=== PATIENT | female | born 1985 | race African-American/Black ===

== ENCOUNTER 2016-09-06 09:53 | Emergency (ER) | payer OTHER ==
[~2016-09-06] VITALS: Ht 175.3 cm; Wt 95.3 kg
[~2016-09-06 09:53] MED LIST: IBUPROFEN800 MG ORAL
--- NOTE | 2016-09-06 10:11 | Emergency Room Report ---
History of Present Illness General Chief Complaint: Abdominal Pain Source: Patient Present Illness HPI Patient presents with complaints of epigastric pain Vomiting and diarrhea since this morning Patient reports smoking marijuana also had a small amount of alcohol However she does not feel that this would attribute to her symptoms As any fevers denies any back or flank pain Pain is epigastric 6/10 sharp Denies any dysuria frequency denies any trauma, Allergies: Coded Allergies: No Known Allergies (Unverified , 12/20/14) Patient History Past Medical History: see triage record Pertinent Family History: none Last Menstrual Period: unk Reviewed Nursing Documentation: PMH: Agreed, PSxH: Agreed Nursing Documentation-PMH Past Medical History: No History, Except For Hx Hypertension: Yes Review of Systems All Other Systems: negative except mentioned in HPI Physical Exam Vital Signs Date Time Temp Pulse Resp B/P Pulse Ox O2 Delivery O2 Flow Rate FiO2 09/06/16 09:55 97.0 62 18 162/98 96 Room Air Sp02 EP Interpretation: reviewed, normal General Appearance: mild distress - Actively vomiting Head: normocephalic, atraumatic Eyes: bilateral eye EOMI, bilateral eye PERRL ENT: hearing grossly normal, normal pharynx, TMs + canals normal, uvula midline Neck: full range of motion, supple, no meningismus, no bony tend Respiratory: lungs clear, normal breath sounds, no rhonchi, no respiratory distress, no retraction, no accessory muscle use Cardiovascular #1: normal peripheral pulses, regular rate, rhythm, no edema, no gallop, no JVD, no murmur Gastrointestinal: normal bowel sounds, soft, no mass, no organomegaly, non- distended, no guarding, no hernia, no pulsatile mass, no rebound, tenderness - Mild discomfort epigastric area Genitourinary: no CVA tenderness Musculoskeletal: normal inspection Neurologic: oriented x3, responsive, cell biology scientist III-XII nml as tested, motor strength/ tone normal, sensory intact Psychiatric: mood/affect normal Skin: normal color, no rash, warm/dry, palpation normal Lymphatic: normal inspection, no adenopathy Medical Decision Making Diagnostic Impression: Primary Impression: Abdominal pain Additional Impressions: Vomiting Diarrhea ER Course With the patient's history and examination, multiple differentials considered, including but not limited to , ectopic , ovarian torsion, gastritis, cholecystitis, pancreatitis, appendicitis Patient's what blood cell count is minimally elevated Otherwise chemistry And urine sample did not show any infectious pathology Patient continues to significantly better in the ER Given a soft abdomen on reexamination Further investigation with CT imaging has not been performed Patient is advised regarding early signs of appendicitis and will return with any changes Labs Test 09/06/16 10:19 White Blood Count 12.6 K/UL (4.8-10.8) Red Blood Count 4.56 M/UL (4.20-5.40) Hemoglobin 15.1 G/DL (12.0-16.0) Hematocrit 45.7 % (37.0-47.0) Mean Corpuscular Volume 100 FL (80-99) Mean Corpuscular Hemoglobin 33.1 PG (27.0-31.0) Mean Corpuscular Hemoglobin Concent 33.0 G/DL (32.0-36.0) Red Cell Distribution Width 11.0 % (11.6-14.8) Platelet Count 357 K/UL (150-450) Mean Platelet Volume 7.9 FL (6.5-10.1) Neutrophils (%) (Auto) % (45.0-75.0) Lymphocytes (%) (Auto) % (20.0-45.0) Monocytes (%) (Auto) % (1.0-10.0) Eosinophils (%) (Auto) % (0.0-3.0) Basophils (%) (Auto) % (0.0-2.0) Differential Total Cells Counted 100 Neutrophils % (Manual) 83 % (45-75) Lymphocytes % (Manual) 12 % (20-45) Monocytes % (Manual) 5 % (1-10) Eosinophils % (Manual) 0 % (0-3) Basophils % (Manual) 0 % (0-2) Band Neutrophils 0 % (0-8) Platelet Estimate Adequate Platelet Morphology Normal Red Blood Cell Morphology Normal Hypochromasia Macrocytosis 1+ Urine Color Yellow Urine Appearance Clear Urine pH 8 (4.5-8.0) Urine Specific [place] 1.010 (1.005-1.035) Urine Protein 2+ (NEGATIVE) Urine Glucose (UA) Negative (NEGATIVE) Urine Ketones 4+ (NEGATIVE) Urine Occult Blood 4+ (NEGATIVE) Urine Nitrite Negative (NEGATIVE) Urine Bilirubin Negative (NEGATIVE) Urine Urobilinogen Normal MG/DL (0.0-1.0) Urine Leukocyte Esterase 1+ (NEGATIVE) Urine RBC 5-10 /HPF (0 - 2) Urine WBC 2-4 /HPF (0 - 2) Urine Squamous Epithelial Cells Few /LPF (NONE/OCC) Urine Bacteria Few /HPF (NONE) Urine HCG, Qualitative Negative Sodium Level 142 mEQ/L (135-145) Potassium Level 3.5 mEQ/L (3.4-4.9) Chloride Level 98 mEQ/L (98-107) Carbon Dioxide Level 21 mEQ/L (20-30) Anion Gap 23 (5-15) Blood Urea Nitrogen 14 mg/dL (7-23) Creatinine 0.8 mg/dL (0.5-0.9) Estimat Glomerular Filtration Rate > 60 mL/min (>60) Glucose Level 114 mg/dL (74-106) Calcium Level 9.5 mg/dL (8.6-10.2) Total Bilirubin 0.5 mg/dL (0.0-1.2) Aspartate Amino Transf (AST/SGOT) 21 U/L (5-40) Alanine Aminotransferase (ALT/SGPT) 20 U/L (3-33) Alkaline Phosphatase 65 U/L (35-104) Total Protein 7.6 g/dL (6.6-8.7) Albumin 4.4 g/dL (3.5-5.2) Globulin 3.2 g/dL Albumin/Globulin Ratio 1.3 (1.0-2.7) Lipase 18 U/L (< 60) Urine Opiates Screen Negative (NEGATIVE) Urine Barbiturates Screen Negative (NEGATIVE) Phencyclidine (PCP) Screen Negative (NEGATIVE) Urine Amphetamines Screen Negative (NEGATIVE) Urine Benzodiazepines Screen Negative (NEGATIVE) Urine Cocaine Screen Negative (NEGATIVE) Urine Marijuana (THC) Screen Positive (NEGATIVE) Last Vital Signs Date Time Temp Pulse Resp B/P Pulse Ox O2 Delivery O2 Flow Rate FiO2 09/06/16 09:55 97.0 62 18 162/98 96 Room Air Status: improved Disposition: HOME, SELF-CARE Condition: Improved Scripts Ondansetron Odt* (ZOFRAN ODT*) 4 Mg Tab.rapdis 4 MG ORAL Q6H Y for Nausea & Vomiting, #20 TAB 0 Refills Prov: IVANNA CERVANTES D.O. 09/06/16 Famotidine (PEPCID) 40 Mg Tablet 40 MG PO DAILY, #7 TAB 0 Refills Prov: IVANNA CERVANTES D.O. 09/06/16 Additional Instructions: Patient is provided with the discharge instructions notified to follow up with primary doctor in the next 2-3 days otherwise return to the er with any worsening symptoms. Please note that this report is being documented using [employer] technology. This can lead to erroneous entry secondary to incorrect interpretation by the dictating instrument. IVANNA CERVANTES D.O. September 06, 2016 10:11
[2016-09-06] MEDS ORDERED: Morphine Sulfate 4mg/ml Inj IVP ONE (10:15)
[2016-09-06] MEDS ORDERED: LORazepam Inj 2mg/ml 1ml IV ONE (10:15)
[2016-09-06 10:29] VITALS: BP 148/93
[2016-09-06 10:40] LABS: MEAN CORPUSCULAR HEMOGLOBIN 33.1 PG (27.0-31.0); MEAN CORPUSCULAR VOLUME 100 FL (80-99); MEAN PLATELET VOLUME 7.9 FL (6.5-10.1); PLATELET COUNT 357 K/UL (150-450); RED BLOOD COUNT 4.56 M/UL (4.20-5.40); WHITE BLOOD COUNT 12.6 K/UL (4.8-10.8)
[2016-09-06 10:43] LABS: APPEARANCE,URINE CLEAR; KETONES,URINE 4+ (NEGATIVE); LEUKOCYTE ESTERASE ,URINE 1+ (NEGATIVE); NITRITE,URINE NEGATIVE (NEGATIVE); PH,URINE 8 (4.5-8.0); PROTEIN,URINE 2+ (NEGATIVE); UROBILINOGEN,URINE NORMAL MG/DL (0.0-1.0)
[2016-09-06 10:57] LABS: ALANINE AMINOTRANSFERASE 20 U/L (3-33); ALBUMIN/GLOBULIN RATIO 1.3 (1.0-2.7); ANION GAP 23 (5-15); ASPARTATE AMINO TRANSFERASE 21 U/L (5-40); CALCIUM 9.5 mg/dL (8.6-10.2); CARBON DIOXIDE 21 mEQ/L (20-30); CHLORIDE 98 mEQ/L (98-107); CREATININE 0.8 mg/dL (0.5-0.9); GLOMERULAR FILTRATION RATE > 60 mL/min (>60); HEMOLYSIS 2; LIPASE 18 U/L (< 60); POTASSIUM 3.5 mEQ/L (3.4-4.9); SODIUM 142 mEQ/L (135-145); TOTAL PROTEIN 7.6 g/dL (6.6-8.7)
[2016-09-06 11:00] LABS: BACTERIA,URINE FEW /HPF; SQUAMOUS EPITHELIAL CELL,UR FEW /LPF (NONE/OCC)
[2016-09-06 11:24] LABS: LYMPHOCYTES % (MANUAL) 12 % (20-45); MACROCYTES 1+; NEUTROPHILS % (MANUAL) 83 % (45-75); PLATELET MORPHOLOGY NORMAL; TOTAL CELLS COUNTED 100
[2016-09-06 11:38] VITALS: BP 159/74
[2016-09-06 12:15] LABS: BAND NEUTROPHILS % (MANUAL) 0 % (0-8); BASOPHILS % (MANUAL) 0 % (0-2); EOSINOPHILS % (MANUAL) 0 % (0-3); PLATELET ESTIMATE ADEQUATE
[2016-09-06] MEDS ORDERED: Dicyclomine HCl 10mg/5ml oral soln ORAL ONE (12:45)
[2016-09-06] MEDS ORDERED: Mylanta II UD 30ml ORAL ONE (12:45)
[2016-09-06] MEDS ORDERED: Lidocaine 2% Visc 15ml soln ORAL ONE (12:45)
[2016-09-06] MEDS ORDERED: ZOFRAN ODT4 MG ORAL (12:58)
[2016-09-06] MEDS ORDERED: PEPCID40 MG PO (12:58)
[2016-09-06 13:08] VITALS: BP 139/76
[2016-09-06 13:11] VITALS: BP 139/76
== END 2016-09-06 13:11 | disposition home or self-care (01) ==
LOC: EMR 10:30
DX: R10.9 Unspecified abdominal pain (principal); R11.10 Vomiting, unspecified; R19.7 Diarrhea, unspecified; I10 Essential (primary) hypertension; F12.10 Cannabis abuse, uncomplicated
CPT/HCPCS: 36415; 80053; 80300; 81003; 81025; 83690; 85007; 85025; 96360; 96374; 96375; 99284; J2270; J2405

== ENCOUNTER 2016-11-11 10:26 | Emergency (ER) | payer OTHER ==
[~2016-11-11] VITALS: Ht 175.3 cm; Wt 90.7 kg
[~2016-11-11 10:26] MED LIST changes: +PEPCID40 MG PO; +ZOFRAN ODT4 MG ORAL
[2016-11-11] MEDS ORDERED: ATENOLOL25 MG ORAL (10:41)
[2016-11-11] MEDS ORDERED: Famotidine 20 MG/ 2ML VIAL IVP ONE (11:00)
[2016-11-11] MEDS ORDERED: Morphine Sulfate 4mg/ml Inj IVP ONE ×2 (11:00→13:15)
[2016-11-11 11:21] LABS: APPEARANCE,URINE CLEAR; KETONES,URINE 4+ (NEGATIVE); LEUKOCYTE ESTERASE ,URINE 1+ (NEGATIVE); NITRITE,URINE NEGATIVE (NEGATIVE); PH,URINE 7 (4.5-8.0); PROTEIN,URINE 1+ (NEGATIVE); UROBILINOGEN,URINE NORMAL MG/DL (0.0-1.0)
[2016-11-11 11:22] LABS: MEAN CORPUSCULAR HEMOGLOBIN 35.2 PG (27.0-31.0); MEAN CORPUSCULAR HGB CONC 34.2 G/DL (32.0-36.0); MEAN CORPUSCULAR VOLUME 103 FL (80-99); MEAN PLATELET VOLUME 7.7 FL (6.5-10.1); PLATELET COUNT 298 K/UL (150-450); RED BLOOD COUNT 4.16 M/UL (4.20-5.40); RED CELL DISTRIBUTION WIDTH 11.2 % (11.6-14.8); WHITE BLOOD COUNT 12.2 K/UL (4.8-10.8)
[2016-11-11 11:34] LABS: BACTERIA,URINE FEW /HPF; SQUAMOUS EPITHELIAL CELL,UR MODERATE /LPF (NONE/OCC)
[2016-11-11 11:38] LABS: ALANINE AMINOTRANSFERASE 19 U/L (3-33); ALBUMIN/GLOBULIN RATIO 1.5 (1.0-2.7); ANION GAP 20 (5-15); ASPARTATE AMINO TRANSFERASE 20 U/L (5-40); CALCIUM 9.3 mg/dL (8.6-10.2); CARBON DIOXIDE 19 mEQ/L (20-30); CHLORIDE 100 mEQ/L (98-107); CREATININE 0.8 mg/dL (0.5-0.9); GLOMERULAR FILTRATION RATE > 60 mL/min (>60); HEMOLYSIS 14; LIPASE 11 U/L (< 60); POTASSIUM 3.7 mEQ/L (3.4-4.9); SODIUM 139 mEQ/L (135-145); TOTAL PROTEIN 7.5 g/dL (6.6-8.7)
[2016-11-11 11:53] LABS: BAND NEUTROPHILS % (MANUAL) 0 % (0-8); BASOPHILS % (MANUAL) 0 % (0-2); EOSINOPHILS % (MANUAL) 0 % (0-3); LYMPHOCYTES % (MANUAL) 7 % (20-45); NEUTROPHILS % (MANUAL) 88 % (45-75); PLATELET ESTIMATE ADEQUATE; TOTAL CELLS COUNTED 100
[2016-11-11 11:54] LABS: ANISOCYTOSIS 1+; MACROCYTES 1+; PLATELET MORPHOLOGY NORMAL
[2016-11-11] MEDS ORDERED: Lidocaine 2% Visc 15ml soln ORAL ONE (12:15)
[2016-11-11] MEDS ORDERED: Mylanta II UD 30ml ORAL ONE (12:15)
[2016-11-11] MEDS ORDERED: DiphenhydrAMINE 50mg/ml Inj IVP ONE (13:15)
[2016-11-11] MEDS ORDERED: Metoclopramide 10mg/2ml Inj IVP ONE (13:15)
--- NOTE | 2016-11-11 13:59 | Emergency Room Report ---
History of Present Illness General Chief Complaint: Abdominal Pain Source: Patient, Family Member Present Illness HPI Patient drank heavily last night and now presents vomiting everything and epigastric pain. Denies vomit blood. Pain 10/10, epigastric, not radiating, burning, constant. Has had before with inflammation in stomach. No meds taken. No dysuria, diarrhea, melena, URi sy, cough, chest pain. No SI or HI. No rashes. Allergies: Coded Allergies: No Known Allergies (Unverified , 12/20/14) Patient History Past Medical History: see triage record Social History: Reports: alcohol use Social History Narrative with Mom Last Menstrual Period: 10/12/16 Now: No Reviewed Nursing Documentation: PMH: Agreed, PSxH: Agreed Nursing Documentation-PMH Hx Hypertension: Yes Review of Systems All Other Systems: negative except mentioned in HPI Physical Exam Vital Signs Date Time Temp Pulse Resp B/P Pulse Ox O2 Delivery O2 Flow Rate FiO2 11/11/16 10:38 97.2 69 20 163/71 100 Room Air Sp02 EP Interpretation: reviewed, normal General Appearance: well appearing, GCS 15, mild distress Head: normocephalic Eyes: bilateral eye PERRL, bilateral eye normal inspection ENT: moist mucus membranes Neck: supple Respiratory: lungs clear, normal breath sounds Cardiovascular #1: regular rate, rhythm Cardiovascular #2: 2+ radial (R) Gastrointestinal: normal inspection, normal bowel sounds, no mass, non- distended, no rebound, tenderness - epigastric Musculoskeletal: back normal, gait/station normal, normal range of motion Neurologic: alert, oriented x3, grossly normal Psychiatric: anxious Skin: normal inspection, warm/dry Medical Decision Making Diagnostic Impression: Primary Impression: Abdominal pain Qualified Codes: R10.13 - Epigastric pain Additional Impression: Alcohol abuse ER Course Patient with epigastric pain and vomiting after EtOH. Ddx; gastritis, pancreatitis, PUD, GERD, gallbladder pain amongst others. Evaluation with labs. Tretment with IV hydration, zofran and pepcid. Will also give analgesics. Labs unremarkable. WBC slightly elevated. Still with pain. Attempt GI cocktail. Vomited. Repeat analgesia with improvement. Abd soft. Patient stable for outpatient observation and treatment Laboratory Tests Test 11/11/16 11:00 White Blood Count 12.2 K/UL (4.8-10.8) H Red Blood Count 4.16 M/UL (4.20-5.40) L Hemoglobin 14.6 G/DL (12.0-16.0) Hematocrit 42.7 % (37.0-47.0) Mean Corpuscular Volume 103 FL (80-99) H Mean Corpuscular Hemoglobin 35.2 PG (27.0-31.0) H Mean Corpuscular Hemoglobin Concent 34.2 G/DL (32.0-36.0) Red Cell Distribution Width 11.2 % (11.6-14.8) L Platelet Count 298 K/UL (150-450) Mean Platelet Volume 7.7 FL (6.5-10.1) Neutrophils (%) (Auto) % (45.0-75.0) Lymphocytes (%) (Auto) % (20.0-45.0) Monocytes (%) (Auto) % (1.0-10.0) Eosinophils (%) (Auto) % (0.0-3.0) Basophils (%) (Auto) % (0.0-2.0) Differential Total Cells Counted 100 Neutrophils % (Manual) 88 % (45-75) H Lymphocytes % (Manual) 7 % (20-45) L Monocytes % (Manual) 5 % (1-10) Eosinophils % (Manual) 0 % (0-3) Basophils % (Manual) 0 % (0-2) Band Neutrophils 0 % (0-8) Platelet Estimate Adequate Platelet Morphology Normal Anisocytosis 1+ Macrocytosis 1+ Urine Color Yellow Urine Appearance Clear Urine pH 7 (4.5-8.0) Urine Specific Sophia 1.005 (1.005-1.035) Urine Protein 1+ (NEGATIVE) H Urine Glucose (UA) Negative (NEGATIVE) Urine Ketones 4+ (NEGATIVE) H Urine Occult Blood 3+ (NEGATIVE) H Urine Nitrite Negative (NEGATIVE) Urine Bilirubin Negative (NEGATIVE) Urine Urobilinogen Normal MG/DL (0.0-1.0) Urine Leukocyte Esterase 1+ (NEGATIVE) H Urine RBC 5-10 /HPF (0 - 2) H Urine WBC 2-4 /HPF (0 - 2) Urine Squamous Epithelial Cells Moderate /LPF (NONE/OCC) H Urine Bacteria Few /HPF (NONE) Urine HCG, Qualitative Negative Sodium Level 139 mEQ/L (135-145) Potassium Level 3.7 mEQ/L (3.4-4.9) Chloride Level 100 mEQ/L (98-107) Carbon Dioxide Level 19 mEQ/L (20-30) L Anion Gap 20 (5-15) H Blood Urea Nitrogen 17 mg/dL (7-23) Creatinine 0.8 mg/dL (0.5-0.9) Estimate Glomerular Filtration Rate > 60 mL/min (>60) Glucose Level 114 mg/dL (74-106) H Calcium Level 9.3 mg/dL (8.6-10.2) Total Bilirubin 0.4 mg/dL (0.0-1.2) Aspartate Amino Transferase (AST) 20 U/L (5-40) Alanine Aminotransferase (ALT) 19 U/L (3-33) Alkaline Phosphatase 54 U/L (35-104) Total Protein 7.5 g/dL (6.6-8.7) Albumin 4.6 g/dL (3.5-5.2) Globulin 2.9 g/dL Albumin/Globulin Ratio 1.5 (1.0-2.7) Lipase 11 U/L (< 60) Last Vital Signs Date Time Temp Pulse Resp B/P Pulse Ox O2 Delivery O2 Flow Rate FiO2 11/11/16 14:23 97.2 105 18 151/99 100 Room Air Status: improved Disposition: HOME, SELF-CARE Condition: Improved Scripts Ondansetron Odt* (ZOFRAN ODT*) 4 Mg Tab.rapdis 4 MG ORAL Q6H Y for Nausea & Vomiting, #6 TAB 1 Refill Prov: Jose Carlos Wray M.D. 11/11/16 Acetaminophen (Tylenol) 325 Mg Tablet 650 MG ORAL Q6H Y for Prn Pain/Headache/Temp > 101, #30 TAB 0 Refills Prov: Jose Carlos Wray M.D. 11/11/16 Famotidine (PEPCID) 20 Mg Tablet 20 MG ORAL DAILY, #30 TAB 0 Refills Prov: Jose Carlos Wray M.D. 11/11/16 Referrals: [facility],REFERR[facility] (PCP) Jose Carlos Wray M.D. Nov 11, 2016 13:59
[2016-11-11] MEDS ORDERED: TYLENOL325 MG ORAL (14:01)
[2016-11-11] MEDS ORDERED: ZOFRAN ODT4 MG ORAL (14:01)
[2016-11-11] MEDS ORDERED: PEPCID20 MG ORAL (14:01)
[2016-11-11 14:21] VITALS: BP 151/99
[2016-11-11 14:23] VITALS: BP 151/99
== END 2016-11-11 14:24 | disposition home or self-care (01) ==
LOC: EMR 11:08
DX: R10.13 Epigastric pain (principal); F10.10 Alcohol abuse, uncomplicated; R11.10 Vomiting, unspecified; I10 Essential (primary) hypertension
CPT/HCPCS: 36415; 80053; 81003; 81025; 83690; 85007; 85025; 96360; 96374; 96375; 99284; J1200; J2270; J2405; J2765; S0028

== ENCOUNTER 2017-02-08 12:23 | Emergency (ER) | payer OTHER ==
[~2017-02-08] VITALS: Ht 175.3 cm; Wt 94.8 kg
[~2017-02-08 12:23] MED LIST changes: +ATENOLOL25 MG ORAL; +PEPCID20 MG ORAL; +TYLENOL325 MG ORAL
[2017-02-08 13:07] VITALS: BP 149/94
[2017-02-08] MEDS ORDERED: Capsaicin 0.075% Cream TOPIC SCH (13:45)
[2017-02-08 14:00] LABS: BASOPHILS % (AUTO) 1.2 % (0.0-2.0); EOSINOPHILS % (AUTO) 0.1 % (0.0-3.0); LYMPHOCYTES % (AUTO) 17.1 % (20.0-45.0); MEAN CORPUSCULAR HEMOGLOBIN 34.1 PG (27.0-31.0); MEAN CORPUSCULAR HGB CONC 32.9 G/DL (32.0-36.0); MEAN CORPUSCULAR VOLUME 104 FL (80-99); MEAN PLATELET VOLUME 7.2 FL (6.5-10.1); MONOCYTES % (AUTO) 3.3 % (1.0-10.0); NEUTROPHILS % (AUTO) 78.4 % (45.0-75.0); PLATELET COUNT 321 K/UL (150-450); RED BLOOD COUNT 4.03 M/UL (4.20-5.40); RED CELL DISTRIBUTION WIDTH 11.1 % (11.6-14.8); WHITE BLOOD COUNT 8.4 K/UL (4.8-10.8)
[2017-02-08] MEDS ORDERED: Morphine Sulfate 4mg/ml Inj IVP ONE ×2 (14:15→15:30)
[2017-02-08 14:28] LABS: ALANINE AMINOTRANSFERASE 31 U/L (12-78); ANION GAP 14 (5-15); ASPARTATE AMINO TRANSFERASE 31 U/L (15-37); CALCIUM 8.7 MG/DL (8.5-10.1); CARBON DIOXIDE 22 MMOL/L (21-32); CHLORIDE 104 MMOL/L (98-107); CREATININE 0.8 MG/DL (0.55-1.30); GLOMERULAR FILTRATION RATE > 60 mL/min (>60); LIPASE 156 U/L (73-393); POTASSIUM 3.5 MMOL/L (3.5-5.1); SODIUM 140 MMOL/L (136-145); TOTAL PROTEIN 7.6 G/DL (6.4-8.2)
--- NOTE | 2017-02-08 15:38 | Emergency Room Report ---
History of Present Illness General Chief Complaint: Nausea, Vomiting, and Diarrhea Source: Patient, Medical Record Present Illness HPI A 31-year-old female presents to the emergency department complaining of multiple episodes of vomiting with epigastric 9/10 in severity localized abdominal pain. reports moderate recent alcohol use. Patient reports marijuana use last night denies fevers, chills, constipation. Patient reports one episode of diarrhea denies bloody stool denies blood in the vomit denies black tarry stools. Denies ill contacts or recent travel.She denies rashes. Denies . Denies CP, Palpitations, LOC, AMS, dizziness, Changes in Vision, Sensation, paresthesias, or a sudden severe headache. Allergies: Coded Allergies: No Known Allergies (Unverified , 12/20/14) Patient History Past Medical History: see triage record Past Surgical History: none Pertinent Family History: none Last Menstrual Period: 02/01/17 Now: No Immunizations: UTD Reviewed Nursing Documentation: PMH: Agreed, PSxH: Agreed Nursing Documentation-PMH Past Medical History: No History, Except For Hx Hypertension: Yes Review of Systems All Other Systems: negative except mentioned in HPI Physical Exam Vital Signs Date Time Temp Pulse Resp B/P (MAP) Pulse Ox O2 Delivery O2 Flow Rate FiO2 02/08/17 12:57 97.5 88 16 166/88 99 Room Air Sp02 EP Interpretation: reviewed, normal General Appearance: alert, GCS 15, non-toxic, mild distress Head: normocephalic, atraumatic Eyes: bilateral eye normal inspection, bilateral eye PERRL ENT: hearing grossly normal, normal voice Neck: full range of motion Respiratory: lungs clear, normal breath sounds, speaking full sentences Cardiovascular #1: regular rate, rhythm, no edema Gastrointestinal: normal bowel sounds, soft, no guarding, no rebound, other - TTP to the RUQ and epigastric area Rectal: deferred Genitourinary: normal inspection, no CVA tenderness Musculoskeletal: back normal, gait/station normal, normal range of motion, non- tender Neurologic: alert, oriented x3, responsive, motor strength/tone normal, sensory intact, speech normal Psychiatric: judgement/insight normal, memory normal, mood/affect normal, anxious Skin: normal color, no rash, warm/dry, well hydrated Lymphatic: no adenopathy Medical Decision Making PA Attestation Dr. Lombardo is my supervising Physician whom patient management has been discussed with. Diagnostic Impression: Primary Impression: Abdominal pain Qualified Codes: R10.11 - Right upper quadrant pain Additional Impression: Nausea, vomiting, and diarrhea ER Course A 31-year-old female presents to the emergency department complaining of multiple episodes of vomiting with epigastric 9/10 in severity localized abdominal pain. reports moderate recent alcohol use. Patient reports marijuana use last night denies fevers, chills, constipation. Patient reports one episode of diarrhea denies bloody stool denies blood in the vomit denies black tarry stools. Denies ill contacts or recent travel.She denies rashes. Denies . Denies CP, Palpitations, LOC, AMS, dizziness, Changes in Vision, Sensation, paresthesias, or a sudden severe headache. Ddx considered but are not limited to Diverticulitis, acute appy, diarrhea,UC, PUD, GE, pancreatitis, gallstone Vital signs: are WNL, pt. is afebrile H&PE are most consistent with Gastritis. ORDERS: CBC, CMP, lipase: all unremarkable. UA, Urine HCG, UDS: pending ED INTERVENTIONS: - - 1000NS, -Zofran -[place] cream applied to abdomen . -Pepcid -4mg Morphine x 2 -ABDOMINAL ULTRASOUND: "The demonstrated part of the pancreas, gallbladder, aorta and IVC, both kidneys, spleen appear unremarkable. Liver is enlarged measuring 19 cm. CBD is 3 mm in diameter. There is no biliary ductal dilatation identified. Doppler evaluation of the main portal vein shows patency. There is no ascites. No hydronephrosis seen. -----Impression:Hepatomegaly".--Per official radiology report. DISCHARGE: At this time pt. is stable for d/c to home. Will provide printed patient care instructions, and any necessary prescriptions. Care plan and follow up instructions have been discussed with the patient prior to discharge. Labs Test 02/08/17 13:28 White Blood Count 8.4 K/UL (4.8-10.8) Red Blood Count 4.03 M/UL (4.20-5.40) Hemoglobin 13.7 G/DL (12.0-16.0) Hematocrit 41.7 % (37.0-47.0) Mean Corpuscular Volume 104 FL (80-99) Mean Corpuscular Hemoglobin 34.1 PG (27.0-31.0) Mean Corpuscular Hemoglobin Concent 32.9 G/DL (32.0-36.0) Red Cell Distribution Width 11.1 % (11.6-14.8) Platelet Count 321 K/UL (150-450) Mean Platelet Volume 7.2 FL (6.5-10.1) Neutrophils (%) (Auto) 78.4 % (45.0-75.0) Lymphocytes (%) (Auto) 17.1 % (20.0-45.0) Monocytes (%) (Auto) 3.3 % (1.0-10.0) Eosinophils (%) (Auto) 0.1 % (0.0-3.0) Basophils (%) (Auto) 1.2 % (0.0-2.0) Sodium Level 140 MMOL/L (136-145) Potassium Level 3.5 MMOL/L (3.5-5.1) Chloride Level 104 MMOL/L (98-107) Carbon Dioxide Level 22 MMOL/L (21-32) Anion Gap 14 (5-15) Blood Urea Nitrogen 14 mg/dL (7-18) Creatinine 0.8 MG/DL (0.55-1.30) Estimat Glomerular Filtration Rate > 60 mL/min (>60) Glucose Level 137 MG/DL (74-106) Calcium Level 8.7 MG/DL (8.5-10.1) Total Bilirubin 0.4 MG/DL (0.2-1.0) Aspartate Amino Transf (AST/SGOT) 31 U/L (15-37) Alanine Aminotransferase (ALT/SGPT) 31 U/L (12-78) Alkaline Phosphatase 61 U/L (46-116) Total Protein 7.6 G/DL (6.4-8.2) Albumin 3.8 G/DL (3.4-5.0) Globulin 3.8 g/dL Albumin/Globulin Ratio 1.0 (1.0-2.7) Lipase 156 U/L (73-393) Last Vital Signs Date Time Temp Pulse Resp B/P (MAP) Pulse Ox O2 Delivery O2 Flow Rate FiO2 02/08/17 13:07 97.4 52 20 149/94 99 Room Air Disposition: HOME, SELF-CARE Condition: Stable Scripts Ranitidine Hcl* (ZANTAC*) 150 Mg Tablet 150 MG ORAL TWICE A DAY for 10 Days, #20 TAB Prov: Savannah Bagley 02/08/17 Ondansetron Odt* (ZOFRAN ODT*) 8 Mg Tab.rapdis 8 MG ORAL Q6H, #10 TAB Prov: Savannah Bagley 02/08/17 Referrals: [facility],REFERRING (PCP) Patient Instructions: Acute Pancreatitis, [id number], Cyclic Vomiting Syndrome, Pediatric, Nausea and Vomiting, Adult Additional Instructions: Take medications as directed. Follow up with a Primary Care Provider within 3 days, even if your symptoms have resolved. --Please review list of primary care clinics, if you do not already have a primary care provider Return sooner to ED if new symptoms occur, or current symptoms become worse. Do not drink alcohol. Stop use of THC products. - Please note that this Emergency Department Report was dictated using [employer] support staff technology software, occasionally this can lead to erroneous entry secondary to interpretation by the dictation equipment. Savannah Bagley Feb 08, 2017 15:38
--- NOTE | 2017-02-08 16:07 | Diagnostic Imaging Report ---
Indication:Abdominal pain Technique: Grayscale and duplex Doppler imaging of the abdomen performed. Comparison: None Findings: The demonstrated part of the pancreas, gallbladder, aorta and IVC, both kidneys, spleen appear unremarkable. Liver is enlarged measuring 19 cm. CBD is 3 mm in diameter. There is no biliary ductal dilatation identified. Doppler evaluation of the main portal vein shows patency. There is no ascites. No hydronephrosis seen. Impression: Hepatomegaly.
[2017-02-08] MEDS ORDERED: ZANTAC150 MG ORAL (16:20)
[2017-02-08] MEDS ORDERED: ZOFRAN ODT8 MG ORAL (16:20)
[2017-02-08] MEDS ORDERED: Dicyclomine HCl 10mg/5ml oral soln ORAL ONE (16:30)
[2017-02-08] MEDS ORDERED: Lidocaine 2% Visc 15ml soln ORAL ONE (16:30)
[2017-02-08] MEDS ORDERED: Mylanta II UD 30ml ORAL ONE (16:30)
[2017-02-08 16:45] VITALS: BP 145/75
== END 2017-02-08 16:45 | disposition home or self-care (01) ==
LOC: EMR 13:40
DX: R10.13 Epigastric pain (principal); R11.2 Nausea with vomiting, unspecified; R19.7 Diarrhea, unspecified; F12.90 Cannabis use, unspecified, uncomplicated; I10 Essential (primary) hypertension; R16.0 Hepatomegaly, not elsewhere classified
CPT/HCPCS: 36415; 76700; 80053; 83690; 85025; 96361; 96372; 96374; 96375; 96376; 99284; J2270; J2405; S0028

== ENCOUNTER 2017-06-07 06:00 | Emergency (ER) | payer OTHER ==
[~2017-06-07] VITALS: Ht 175.3 cm; Wt 83.5 kg
[~2017-06-07 06:00] MED LIST changes: +ZANTAC150 MG ORAL; +ZOFRAN ODT8 MG ORAL
[2017-06-07 06:15] VITALS: BP 148/78
[2017-06-07] MEDS ORDERED: Morphine Sulfate 4mg/ml Inj IVP ONE (06:15)
--- NOTE | 2017-06-07 06:35 | Emergency Room Report ---
History of Present Illness General Chief Complaint: Abdominal Pain Source: Patient Present Illness HPI Patient presents with epigastric abdominal pain. She's been vomiting. There might be some blood. Denies any and diarrhea. This happens around her menstruation. She is on her period now. She denies a fevers but has had chills. She feels weakness and also cramping in her hands with vomiting. Denies any sore throat cough. There's some chest pain with the vomiting. The pain is severe, diffuse and burning with pressure. Pain rated 10/10, not radiating. She does not have meds at home. In the past this has happened with alcohol consumption. She denies this at this time. Anxious. Allergies: Coded Allergies: No Known Allergies (Unverified , 12/20/14) Patient History Past Medical History: see triage record Social History Narrative at home Last Menstrual Period: Jun Reviewed Nursing Documentation: PMH: Agreed, PSxH: Agreed Nursing Documentation-PMH Hx Hypertension: Yes Review of Systems All Other Systems: negative except mentioned in HPI Physical Exam Vital Signs Date Time Temp Pulse Resp B/P (MAP) Pulse Ox O2 Delivery O2 Flow Rate FiO2 06/07/17 06:06 97.7 61 18 156/78 98 Room Air Sp02 EP Interpretation: reviewed, normal General Appearance: well appearing, GCS 15, mild distress Head: normocephalic Eyes: bilateral eye normal inspection, bilateral eye PERRL ENT: moist mucus membranes Neck: supple Respiratory: lungs clear, normal breath sounds Cardiovascular #1: regular rate, rhythm Cardiovascular #2: 2+ radial (R) Gastrointestinal: normal inspection, normal bowel sounds, no mass, non- distended, tenderness - epigastric Genitourinary: no CVA tenderness Musculoskeletal: back normal, gait/station normal, normal range of motion Neurologic: alert, oriented x3, grossly normal Psychiatric: depressed affect Skin: normal inspection, warm/dry Medical Decision Making Diagnostic Impression: Primary Impression: Abdominal pain Qualified Codes: R10.13 - Epigastric pain Additional Impressions: Gastritis Qualified Codes: K29.00 - Acute gastritis without bleeding Vomiting Qualified Codes: R11.2 - Nausea with vomiting, unspecified ER Course Patient presents with abdominal pain vomiting. Differential includes gastritis , peptic ulcer disease, GERD, pancreatitis amongst others. Should evaluated with labs appear to be treated with IV hydration, analgesia, Zofran and Pepcid. Improved with analgesia, but still vomiting. Compazine and benadryl ordered. Labs with pyuria, but TNTC RBC and negative for nitrites. Will not treat but will observe. Silvio PO and pain gone. Patient stable for outpatient observation and treatment. Laboratory Tests Test 06/07/17 06:20 White Blood Count 10.3 K/UL (4.8-10.8) Red Blood Count 3.94 M/UL (4.20-5.40) L Hemoglobin 13.5 G/DL (12.0-16.0) Hematocrit 39.3 % (37.0-47.0) Mean Corpuscular Volume 100 FL (80-99) H Mean Corpuscular Hemoglobin 34.2 PG (27.0-31.0) H Mean Corpuscular Hemoglobin Concent 34.2 G/DL (32.0-36.0) Red Cell Distribution Width 11.1 % (11.6-14.8) L Platelet Count 293 K/UL (150-450) Mean Platelet Volume 7.1 FL (6.5-10.1) Neutrophils (%) (Auto) 82.6 % (45.0-75.0) H Lymphocytes (%) (Auto) 11.5 % (20.0-45.0) L Monocytes (%) (Auto) 4.3 % (1.0-10.0) Eosinophils (%) (Auto) 0.1 % (0.0-3.0) Basophils (%) (Auto) 1.6 % (0.0-2.0) Urine Color Red Urine Appearance Cloudy Urine pH 8 (4.5-8.0) Urine Specific [place] 1.015 (1.005-1.035) Urine Protein 3+ (NEGATIVE) H Urine Glucose (UA) Negative (NEGATIVE) Urine Ketones 4+ (NEGATIVE) H Urine Occult Blood 5+ (NEGATIVE) H Urine Nitrite Negative (NEGATIVE) Urine Bilirubin Negative (NEGATIVE) Urine Urobilinogen Normal MG/DL (0.0-1.0) Urine Leukocyte Esterase 2+ (NEGATIVE) H Urine RBC Tntc /HPF (0 - 2) H Urine WBC 5-10 /HPF (0 - 2) H Urine Squamous Epithelial Cells Occasional /LPF Urine Bacteria Occasional /HPF (NONE) Urine HCG, Qualitative Negative Sodium Level 142 MMOL/L (136-145) Potassium Level 3.3 MMOL/L (3.5-5.1) L Chloride Level 106 MMOL/L (98-107) Carbon Dioxide Level 23 MMOL/L (21-32) Anion Gap 13 mmol/L (5-15) Blood Urea Nitrogen 15 mg/dL (7-18) Creatinine 1.0 MG/DL (0.55-1.30) Estimate Glomerular Filtration Rate > 60 mL/min (>60) Glucose Level 143 MG/DL (74-106) H Calcium Level 9.1 MG/DL (8.5-10.1) Total Bilirubin 0.3 MG/DL (0.2-1.0) Aspartate Amino Transferase (AST) 32 U/L (15-37) Alanine Aminotransferase (ALT) 32 U/L (12-78) Alkaline Phosphatase 64 U/L (46-116) Total Protein 7.6 G/DL (6.4-8.2) Albumin 4.0 G/DL (3.4-5.0) Globulin 3.6 g/dL Albumin/Globulin Ratio 1.1 (1.0-2.7) Lipase 93 U/L (73-393) Urine Opiates Screen Negative (NEGATIVE) Urine Barbiturates Screen Negative (NEGATIVE) Phencyclidine (PCP) Screen Negative (NEGATIVE) Urine Amphetamines Screen Negative (NEGATIVE) Urine Benzodiazepines Screen Negative (NEGATIVE) Urine Cocaine Screen Negative (NEGATIVE) Urine Marijuana (THC) Screen Positive (NEGATIVE) H Serum Alcohol < 3 mg/dL Last Vital Signs Date Time Temp Pulse Resp B/P (MAP) Pulse Ox O2 Delivery O2 Flow Rate FiO2 06/07/17 10:09 98.6 50 20 106/71 100 Room Air Status: improved Disposition: HOME, SELF-CARE Condition: Improved Scripts Tramadol Hcl* (ULTRAM*) 50 Mg Tablet 50 MG ORAL Q6H Y for For Pain, #10 TAB 0 Refills Prov: Jose Carlos Wray M.D. 06/07/17 Ondansetron Odt* (ZOFRAN ODT*) 4 Mg Tab.rapdis 4 MG ORAL Q8H Y for Nausea & Vomiting, #10 TAB 1 Refill Prov: Jose Carlos Wray M.D. 06/07/17 Famotidine (PEPCID) 20 Mg Tablet 20 MG ORAL DAILY, #30 TAB 0 Refills Prov: Jose Carlos Wray M.D. 06/07/17 Referrals: [facility],REFERRING (PCP) Jose Carlos Wray M.D. Jun 07, 2017 06:35
[2017-06-07 06:43] LABS: BASOPHILS % (AUTO) 1.6 % (0.0-2.0); EOSINOPHILS % (AUTO) 0.1 % (0.0-3.0); HEMATOCRIT 39.3 % (37.0-47.0); HEMOGLOBIN 13.5 G/DL (12.0-16.0); LYMPHOCYTES % (AUTO) 11.5 % (20.0-45.0); MEAN CORPUSCULAR VOLUME 100 FL (80-99); MONOCYTES % (AUTO) 4.3 % (1.0-10.0); NEUTROPHILS % (AUTO) 82.6 % (45.0-75.0); PLATELET COUNT 293 K/UL (150-450); RED BLOOD COUNT 3.94 M/UL (4.20-5.40); RED CELL DISTRIBUTION WIDTH 11.1 % (11.6-14.8); WHITE BLOOD COUNT 10.3 K/UL (4.8-10.8)
[2017-06-07] MEDS ORDERED: Hydromorphone 0.5mg/0.5ml inj IVP ONE (06:45)
[2017-06-07] MEDS ORDERED: HYDROmorphone 1mg/ml Carpuject IVP ONE (06:45)
[2017-06-07 06:50] LABS: APPEARANCE,URINE CLOUDY; BILIRUBIN, URINE NEGATIVE (NEGATIVE); COLOR,URINE RED; GLUCOSE, URINE (UA) NEGATIVE (NEGATIVE); KETONES,URINE 4+ (NEGATIVE); LEUKOCYTE ESTERASE ,URINE 2+ (NEGATIVE); NITRITE,URINE NEGATIVE (NEGATIVE); PH,URINE 8 (4.5-8.0); PROTEIN,URINE 3+ (NEGATIVE); UROBILINOGEN,URINE NORMAL MG/DL (0.0-1.0)
[2017-06-07 07:09] LABS: ANION GAP 13 mmol/L (5-15); BLOOD UREA NITROGEN 15 mg/dL (7-18); CALCIUM 9.1 MG/DL (8.5-10.1); CARBON DIOXIDE 23 MMOL/L (21-32); CHLORIDE 106 MMOL/L (98-107); POTASSIUM 3.3 MMOL/L (3.5-5.1); SODIUM 142 MMOL/L (136-145)
[2017-06-07 07:13] LABS: ALANINE AMINOTRANSFERASE 32 U/L (12-78); ALBUMIN/GLOBULIN RATIO 1.1 (1.0-2.7); ALKALINE PHOSPHATASE 64 U/L (46-116); ASPARTATE AMINO TRANSFERASE 32 U/L (15-37); BILIRUBIN,TOTAL 0.3 MG/DL (0.2-1.0)
[2017-06-07 07:15] VITALS: BP 106/71
[2017-06-07] MEDS ORDERED: DiphenhydrAMINE 50mg/ml Inj IVP ONE (07:30)
[2017-06-07] MEDS ORDERED: PEPCID20 MG ORAL (09:49)
[2017-06-07] MEDS ORDERED: TRAMADOL HCL50 MG ORAL (09:49)
[2017-06-07] MEDS ORDERED: ZOFRAN ODT4 MG ORAL (09:49)
[2017-06-07] MEDS ORDERED: oxyCODONE HCL/Acetaminophen 5/325mg ORAL ONE (10:00)
[2017-06-07 10:09] VITALS: BP 106/71
== END 2017-06-07 10:12 | disposition home or self-care (01) ==
LOC: EMR 06:29
DX: K29.70 Gastritis, unspecified, without bleeding (principal); I10 Essential (primary) hypertension
CPT/HCPCS: 36415; 80053; 80307; 80329; 81003; 81025; 83690; 85025; 96361; 96374; 96375; 99284; J0780; J1170; J1200; J2270; J2405; S0028

== ENCOUNTER 2017-11-29 13:33 | Inpatient (IN) | payer OTHER ==
[~2017-11-29] VITALS: Ht 175.3 cm; Wt 72.6 kg
[~2017-11-29 13:33] MED LIST changes: +TRAMADOL HCL50 MG ORAL
[2017-11-29 13:50] VITALS: BP 164/108
[2017-11-29] MEDS ORDERED: Morphine Sulfate 4mg/ml Inj (IV USE ONLY) IVP ONE ×2 (14:00→15:15)
[2017-11-29 14:10] LABS: HEMATOCRIT 41.1 % (37.0-47.0); HEMOGLOBIN 13.6 G/DL (12.0-16.0); MEAN CORPUSCULAR VOLUME 98 FL (80-99); PLATELET COUNT 285 K/UL (150-450); RED BLOOD COUNT 4.21 M/UL (4.20-5.40); RED CELL DISTRIBUTION WIDTH 10.9 % (11.6-14.8); WHITE BLOOD COUNT 11.6 K/UL (4.8-10.8)
[2017-11-29 14:18] LABS: ANION GAP 17 mmol/L (5-15); BLOOD UREA NITROGEN 14 mg/dL (7-18); CALCIUM 9.2 MG/DL (8.5-10.1); CARBON DIOXIDE 18 MMOL/L (21-32); CHLORIDE 103 MMOL/L (98-107); CREATININE 0.8 MG/DL (0.55-1.30); SODIUM 138 MMOL/L (136-145)
[2017-11-29 14:22] LABS: ALANINE AMINOTRANSFERASE 25 U/L (12-78); ALBUMIN 4.4 G/DL (3.4-5.0); ALBUMIN/GLOBULIN RATIO 1.2 (1.0-2.7); ALKALINE PHOSPHATASE 60 U/L (46-116); ASPARTATE AMINO TRANSFERASE 38 U/L (15-37); BILIRUBIN,TOTAL 0.9 MG/DL (0.2-1.0)
[2017-11-29] MEDS ORDERED: Isovue-300 100ml vial INJ PRN (14:30)
[2017-11-29 14:58] LABS: APPEARANCE,URINE SLIGHTLY CLOUDY; BILIRUBIN, URINE NEGATIVE (NEGATIVE); COLOR,URINE PALE YELLOW; GLUCOSE, URINE (UA) NEGATIVE (NEGATIVE); KETONES,URINE 4+ (NEGATIVE); LEUKOCYTE ESTERASE ,URINE 2+ (NEGATIVE); NITRITE,URINE NEGATIVE (NEGATIVE); PH,URINE 7 (4.5-8.0); PROTEIN,URINE 4+ (NEGATIVE); UROBILINOGEN,URINE NORMAL MG/DL (0.0-1.0)
[2017-11-29] MEDS ORDERED: Ketorolac 30mg Inj IV ONE (15:15)
[2017-11-29] MEDS ORDERED: Morphine Sulfate 4mg/ml Inj (IV USE ONLY) ONE (15:16)
--- NOTE | 2017-11-29 15:18 | Diagnostic Imaging Report ---
Indications: Seizure Technique: Spiral acquisitions obtained through the brain. Angled axial and coronal 5 x 5 mm slices were reconstructed. Total dose length product 1379.6 mGycm. CTDI vol(s) 70.38 mGy. Dose reduction achieved using automated exposure control Comparison: None. Findings: No acute hemorrhage or edema. No mass effect nor midline shift. Normal holliday-white differentiation. Visualized orbits and sinuses are unremarkable. Intact calvarium. Impression: Negative The CT scanner at [facility] is accredited by the [employer] and the scans are performed using protocols designed to limit radiation exposure to as low as reasonably achievable to attain images of sufficient resolution adequate for diagnostic evaluation.
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
[2017-11-29 16:00] VITALS: BP 122/88
--- NOTE | 2017-11-29 16:23 | Diagnostic Imaging Report ---
Clinical Indication: Abdominal pain Technique: No oral contrast utilized, per emergency room physician request IV administration nonionic contrast. Venous phase spiral acquisition obtained through the abdomen and pelvis. Multiplanar reconstructions were generated. Total dose length product 759.02 mGycm. CTDIvol(s) 14.36 mGy. Dose reduction achieved using automated exposure control Comparison: none Findings: Lack of enteric contrast limits assessment of the GI tract. The appendix is normal there is no evidence of diverticulosis or diverticulitis. No small bowel distention. No free or loculated intraperitoneal air or fluid is evident. Distal esophagus, stomach, duodenum are unremarkable. The gallbladder is unremarkable. There is no biliary ductal dilatation. There is periportal edema. There is focal fatty infiltration of the liver in the usual location adjacent to the falciform ligament. No other focal hepatic abnormality demonstrated. The pancreas, spleen, adrenals, kidneys are all unremarkable. No retroperitoneal or mesenteric mass or adenopathy. No pelvic mass or adenopathy. The included lung bases demonstrate minimal focal pleural thickening in the left costophrenic sulcus, otherwise unremarkable. The bones demonstrate minimal degenerative spondylosis changes. There is mild lumbar scoliotic deformity which may be an artifact of positioning. Impression: Limited assessment of the GI tract, due to lack of enteric contrast administration Mild periportal edema. This is a nonspecific finding, but can be seen in hepatitis among other possibilities. Correlate with clinical and laboratory findings No acute process otherwise Incidental findings of typical focal fatty infiltration of the liver, equivocal mild lumbar scoliotic deformity, minimal degenerative spondylosis The CT scanner at [facility] is accredited by the [employer] and the scans are performed using protocols designed to limit radiation exposure to as low as reasonably achievable to attain images of sufficient resolution adequate for diagnostic evaluation.
[2017-11-29 18:01] VITALS: BP 126/62
[2017-11-29] MEDS: traMADol 50mg tab ORAL PRN (18:49)
[2017-11-29 20:00] VITALS: BP 142/68
--- NOTE | 2017-11-29 23:45 | Consultation ---
DATE OF CONSULTATION: 11/29/2017 CARDIOLOGY CONSULTATION CONSULTING PHYSICIAN: Jose Carlos Lau M.D. REQUESTING PHYSICIAN: Edinson Chacon M.D. REASON FOR CONSULTATION: Cardiac arrhythmias. HISTORY OF PRESENT ILLNESS: This 32-year-old female developed abdominal pain today and came to the emergency room. She described it as severe, sharp, and epigastric, and nonradiating. She has similar pain related to her periods, but that is not the case today. While in the emergency room, she apparently had a seizure and subsequently had noted arrhythmia, which was described as possible torsade de pointes. Subsequently, she developed a short episode of atrial fibrillation and then spontaneously converted to sinus bradycardia. The patient denies any prior history of cardiovascular disease and known irregular heart beats. She has been told of high blood pressure in the past, but has been noncompliant with medications. PAST MEDICAL HISTORY: Otherwise unremarkable. No prior history of seizure disorder. MEDICATIONS: None at this time. SOCIAL HISTORY: Negative for smoking, alcohol, or illicit drug use other than marijuana use. FAMILY HISTORY: Noncontributory. REVIEW OF SYSTEMS: As outlined above. No known history of endocarditis, rheumatic heart disease, cardiac arrhythmias, or abnormal blood clotting. PHYSICAL EXAMINATION: GENERAL: Presently awake, alert, in no distress. VITAL SIGNS: Blood pressure 130/70, pulse 52, respiratory rate 16. HEENT: Normocephalic and atraumatic. Conjunctivae pink. Oropharynx clear. NECK: Supple. No bruits. Jugular venous pressure normal. LUNGS: Clear. CARDIAC: Regular rhythm and rate. Normal S1 and S2 with no murmur, rub or gallop. ABDOMEN: Soft and nontender. EXTREMITIES: No edema. LABORATORY AND DIAGNOSTIC DATA: Labs notable for magnesium 1.7. CT scan of the brain with no acute process. CT scan of the abdomen and pelvis with no acute process. Urine toxicology screen notable for opiates and marijuana. EKG, atrial fibrillation with nonspecific ST-T wave changes. Monitored strips reviewed, artifact versus torsade cannot be determined. IMPRESSION: 1. Paroxysmal atrial fibrillation. 2. History of hypertension. 3. Possible episode of torsade, although more likely artifact on the monitor associated with movement due to her seizure. 4. Hypomagnesemia. 5. Abdominal pain of unclear etiology PLAN: 1. Echocardiogram. 2. Monitor blood pressure. 3. Cardiac monitoring. 4. DVT prophylaxis. 5. Magnesium replacement. 6. Consideration for anticoagulation long-term to follow. Jose Carlos Lau M.D. DR: ANA JOB#: [id number] CC:
[2017-11-29] MEDS: Zolpidem 5mg tab ORAL PRN (23:51)
[2017-11-30] VITALS: BP 124/74
[2017-11-30] MEDS: traMADol 50mg tab ORAL PRN ×3 (03:26→21:30)
[2017-11-30 04:00] VITALS: BP 120/70
[2017-11-30 08:00] VITALS: BP 127/82
[2017-11-30] MEDS: Eliquis 2.5mg tablet ORAL SCH ×2 (10:57→18:00)
[2017-11-30 12:00] VITALS: BP 137/83
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
--- NOTE | 2017-11-30 13:57 | Cardiology Report ---
APPROVED REPORT EXAM: Two-dimensional and M-mode echocardiogram with Doppler and color Doppler. INDICATION Bradycardia M-Mode DIMENSIONS IVSd1.1 (0.7-1.1cm)Left Atrium (MM)3.0 (1.6-4.0cm) LVDd5.1 (3.5-5.6cm)Aortic Root3.7 (2.0-3.7cm) PWd1.1 (0.7-1.1cm)Aortic Cusp Exc.2.3 (1.5-2.0cm) LVDs3.2 (2.5-4.0cm) PWs1.9 cm Normal left ventricular chamber size, systolic function and wall motion. Left ventricular ejection fraction estimated to be 55-60 %. No evidence of left ventricular hypertrophy. No evidence of pericardial effusion. Mild left atrial enlargement. Right atrial size at upper limits of normal. Right ventricular chamber size is within normal limits. Mild focal aortic valve sclerosis with adequate cusp excursion. Mildly thickened mitral valve leaflets with normal excursion. Mild mitral annulus and aortic root calcification. Pulmonic valve not well visualized. Normal tricuspid valve structure. IVC dilated at 2.5 cm with physiologic collapse suggestive of increased RA pressure. A color flow and spectral Doppler study was performed and revealed: Mild aortic regurgitation. Trace to mild mitral regurgitation. Mitral inflow indicates normal left ventricular diastolic function. Trace to mild tricuspid regurgitation. Tricuspid systolic velocities suggests peak right ventricular systolic pressure of 36 mmHg, consistent with mild pulmonary hypertension. Mild pulmonic regurgitation present.
--- NOTE | 2017-11-30 14:02 | Cardiology Report ---
APPROVED REPORT EKG Measurement Heart [id number] Atrial fibrillation Prolonged QT Abnormal ECG
[2017-11-30 16:00] VITALS: BP 129/71
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
[2017-11-30] MEDS ORDERED: Gadavist 7.5mMol/7.5ml vial IV PRN (19:15)
[2017-11-30 20:00] VITALS: BP 149/74
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
[2017-11-30] MEDS: Zolpidem 5mg tab ORAL PRN (21:30)
[2017-12-01] VITALS: BP 116/59
--- NOTE | 2017-12-01 03:45 | Progress Note ---
DATE: 11/30/2017 CARDIOLOGY PROGRESS NOTE SUBJECTIVE: No new seizures. Denies chest pain or shortness of breath. Monitored rhythm, sinus. Sinus bradycardia, sinus arrhythmia. OBJECTIVE: VITAL SIGNS: Blood pressure 149/74, pulse 54, and respiratory rate 26. LUNGS: Clear. CARDIAC: Regular. Normal S1, S2 with a 1/6 systolic murmur at the apex. ABDOMEN: Soft. No edema. DIAGNOSTIC AND LABORATORY DATA: Echocardiogram with mild regurgitation of the mitral and aortic and tricuspid valves with PA systolic pressure elevation minimally of 36. IMPRESSION: 1. New onset seizure. 2. Paroxysmal atrial fibrillation. 3. Hypertensive heart disease. 4. Borderline pulmonary hypertension. 5. Valvular regurgitation. RECOMMENDATIONS: 1. Add WESLY inhibitor. 2. Agree with Eliquis for cardioembolic prophylaxis. 3. Await neurological workup including MRI and EEGs. Jose Carlos Lau M.D. DR: WILIAN JOB#: [id number] CC:
[2017-12-01 04:00] VITALS: BP 112/62
[2017-12-01] MEDS: traMADol 50mg tab ORAL PRN ×2 (06:04→10:27)
[2017-12-01 08:00] VITALS: BP 141/85
--- NOTE | 2017-12-01 08:18 | Pulmonology Progress Note ---
Assessment/Plan Assessment/Plan 1. Seizure disorder, suspect second episode. 2. Marijuana use. 3. Atrial fibrillation. 4. Hypertension. DISCUSSION: The patient was thought to have torsade de pointes yesterday. However, on review of rhythm strip by python java developer, it appears to be an artifact. She does however have paroxysmal atrial fibrillation. She will be a candidate for anticoagulation. Will dc home if MRI negative WESLY inhibitor, Nyla Jung Subjective Interval Events: Better Constitutional: Reports: no symptoms HEENT: Repors: no symptoms Respiratory: Reports: no symptoms Cardiovascular: Reports: no symptoms Gastrointestinal/Abdominal: Reports: no symptoms Genitourinary: Reports: no symptoms Allergies: Coded Allergies: No Known Allergies (Unverified , 12/20/14) Objective Last 24 Hour Vital Signs Date Time Temp Pulse Resp B/P (MAP) Pulse Ox O2 Delivery O2 Flow Rate FiO2 12/01/17 04:00 98.0 54 20 112/62 (79) 99 98.0 12/01/17 04:00 50 12/01/17 00:00 64 12/01/17 00:00 98.0 64 20 116/59 (78) 98 98.0 11/30/17 21:00 Room Air 11/30/17 20:00 97.7 54 26 149/74 (99) 98 97.7 11/30/17 20:00 54 11/30/17 16:00 98.0 66 21 129/71 (90) 99 98.0 11/30/17 15:58 69 11/30/17 12:00 97.9 49 22 137/83 (101) 97 97.9 11/30/17 11:50 57 11/30/17 09:00 Room Air Intake and Output 11/30/17 12/01/17 19:00 07:00 Intake Total 720 ml Balance 720 ml Intake Oral 720 ml # Voids 1 2 # Bowel Movements 1 General Appearance: no acute distress HEENT: normocephalic Respiratory/Chest: chest wall non-tender, lungs clear Cardiovascular: normal peripheral pulses Abdomen: normal bowel sounds Current Medications Medications (Trade) Dose Ordered Sig/Marcos Route PRN Reason Start Time Stop Time Status Last Admin Dose Admin Apixaban (Eliquis) 5 mg BID ORAL 11/30/17 09:30 12/30/17 09:29 11/30/17 18:00 Benazepril HCl (Lotensin) 40 mg DAILY ORAL 12/01/17 09:00 12/31/17 08:59 Gadobutrol (Gadavist) 7.5 mmol NOW PRN IV Radiology Procedure 11/30/17 19:15 12/04/17 19:03 Iopamidol (Isovue-300 100ml) 100 ml NOW PRN INJ Radiology Procedure 11/29/17 14:30 Levetiracetam (Keppra) 500 mg Q12HR ORAL 11/30/17 09:30 12/30/17 09:29 11/30/17 21:30 Tramadol HCl (Ultram) 50 mg Q6H PRN ORAL Abdominal cramps 11/29/17 18:45 12/06/17 18:44 12/01/17 06:04 Zolpidem Tartrate (Ambien) 5 mg HSPRN PRN ORAL Insomnia 11/29/17 22:45 12/06/17 22:44 11/30/17 21:30 Edinson Chacon MD Dec 01, 2017 08:18
[2017-12-01] MEDS: Eliquis 2.5mg tablet ORAL SCH (08:21)
[2017-12-01] MEDS ORDERED: KEPPRA500 MG ORAL (08:22)
[2017-12-01] MEDS ORDERED: ELIQUIS2.5 MG ORAL (08:22)
[2017-12-01] MEDS ORDERED: BENAZEPRIL HCL40 MG ORAL (08:22)
--- NOTE | 2017-12-01 11:33 | Diagnostic Imaging Report ---
Indication: Onset seizures Technique: sagittal T1 fast spin echo, axial T1 and T2 FLAIR PROPELLER, axial T2 FS PROPELLER, T2* GRE,, coronal T2 FLAIR PROPELLER, coronal FSPGR SETHI, axial diffusion weighted images, post contrast axial and coronal T1 FLAIR PROPELLER images. ADC and exponential ADC maps generated Comparison: CT brain 11/29/2017 Findings: The hippocampi are bilateral, symmetrical, demonstrate no signal abnormality.. No abnormal areas of restricted diffusion to suggest acute infarction. No acute hemorrhage or edema. No mass effect nor midline shift. No abnormal contrast enhancement. Normal size ventricles and extra axial CSF spaces. Visualized orbits and sinuses are unremarkable. The vascular flow voids are preserved. Impression: Negative
[2017-12-01 12:00] VITALS: BP 139/73
--- NOTE | 2017-12-01 23:00 | Electroencephalogram ---
DATE OF PROCEDURE: 11/30/2017 REQUESTING PHYSICIAN: Edinson Chacon M.D. READING PHYSICIAN: Jimmy Mariano M.D. ELECTROENCEPHALOGRAM REPORT HISTORY: This EEG was performed on a 32-year-old lady with a history of an episode of loss of consciousness, thought to be a possible seizure. The purpose of this EEG was to better delineate the type of seizure disorder. TECHNICAL NOTE: This EEG was performed on a [employer] Unit with electrodes placed on the scalp according to the International 10-20 system. Lxzos-jf-nhrxr and ejzmc-ki-szt montages were used. The EEG was technically satisfactory and was performed in the awake, drowsy, and sleep states. OBSERVATION: In the best awake state, the background activity consisted of 9-9.5 Hz, posteriorly predominant well-developed alpha waveforms, which attenuated an eye opening. Drowsiness was characterized by dissolution of the alpha rhythm and the appearance of slow frequencies in the 5-6 Hz theta range. Stage II sleep was characterized by further slowing of the background in the delta and theta range, the presence of vertex waves, and 14-16 Hz sleep spindles. Photic stimulation was performed at various different frequencies and produced a normal driving response. No focal abnormalities or epileptiform discharges were seen. IMPRESSION: Normal awake, drowsy, and stage II sleep EEG. COMMENT: A normal EEG does not rule out a seizure disorder. Jimmy Mariano M.D., M.S.P.H. DR: PEDRO JOB#: [id number] [facility]
--- NOTE | 2017-12-02 00:45 | Progress Note ---
DATE: 12/01/2017 SUBJECTIVE: No new seizures. EEG negative. MRI unremarkable. Monitor with sinus rhythm and PACs. No recurring atrial fibrillation. OBJECTIVE: VITAL SIGNS: Blood pressure 116/59, pulse 64, respiratory rate 20, and afebrile. LUNGS: Clear. CARDIAC: Regular. Normal S1 and S2. A 1/6 systolic murmur at apex. ABDOMEN: Soft. No edema. IMPRESSION: 1. Probable seizure disorder. 2. Paroxysmal atrial fibrillation. 3. History of hypertension. 4. Mild valvular regurgitation. PLAN: 1. Cardioembolic prophylaxis with Eliquis. 2. Outpatient monitoring of blood pressure. 3. Titrate antihypertensives based on clinical parameters. 4. Antiseizure therapy per primary care physician. Jose Carlos Lau M.D. DR: ANA JOB#: [id number] CC:
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
== END 2017-12-01 13:35 | disposition home or self-care (01) | DRG 53 ==
LOC: EMR 13:54 → 2E 14:53 → EDBEDREQ 16:22
DX: G40.909 Epilepsy, unspecified, not intractable, without status epilepticus (principal); I27.20 Pulmonary hypertension, unspecified; I07.1 Rheumatic tricuspid insufficiency; I48.0 Paroxysmal atrial fibrillation; E83.42 Hypomagnesemia; I10 Essential (primary) hypertension; F12.90 Cannabis use, unspecified, uncomplicated; R00.1 Bradycardia, unspecified; I35.1 Nonrheumatic aortic (valve) insufficiency; I34.0 Nonrheumatic mitral (valve) insufficiency; F10.21 Alcohol dependence, in remission
CPT/HCPCS: 36415; 70450; 70553; 74177; 80053; 80299; 80307; 81003; 81025; 83690; 83735; 84484; 85007; 85025; 93005; 93306; 95819; A9585; J2405

== ENCOUNTER 2018-02-04 20:59 | Emergency (ER) | payer OTHER ==
[~2018-02-04] VITALS: Ht 175.3 cm; Wt 77.1 kg
[~2018-02-04 20:59] MED LIST changes: +BENAZEPRIL HCL40 MG ORAL; +ELIQUIS2.5 MG ORAL; +KEPPRA500 MG ORAL; +LAMISIL15 GM TOPIC
[2018-02-04 21:06] VITALS: BP 121/78
[2018-02-04] MEDS ORDERED: MUPIROCIN22 GM TOPIC (21:35)
--- NOTE | 2018-02-04 21:35 | Emergency Room Report ---
History of Present Illness General Chief Complaint: Skin Rash/Abscess Source: Patient Present Illness HPI Is a 32-year-old female who is right-hand dominant. She presents with chief complaint of a rash over her right hand. She works as a yoo. About month to 2 months ago she noticed a small bump on her right hand. Slightly itching. Now is getting worse. She been using kmqy-nrh-eswvucj antifungal medication without any relief. No fever or chills. No drainage. No nausea no vomiting. No other trauma. Allergies: Coded Allergies: No Known Allergies (Unverified , 02/04/18) Patient History Past Medical History: see triage record, old chart reviewed, HTN Past Surgical History: other Pertinent Family History: none Social History: Denies: smoking Last Menstrual Period: Jan 2018 Now: No Immunizations: other Reviewed Nursing Documentation: PMH: Agreed; PSxH: Agreed Nursing Documentation-PMH Past Medical History: No History, Except For Hx Hypertension: Yes Hx Seizures: Yes Review of Systems Eye: Denies: eye pain, blurred vision ENT: Denies: ear pain, nose congestion, throat swelling Respiratory: Denies: cough, shortness of breath Cardiovascular: Denies: chest pain, palpitations Gastrointestinal: Denies: abdominal pain, diarrhea, nausea, vomiting Musculoskeletal: Denies: back pain, joint pain Skin: Reports: rash Neurological: Denies: headache, numbness Endocrine: Denies: increased thirst, increased urine Hematologic/Lymphatic: Denies: easy bruising All Other Systems: negative except mentioned in HPI Physical Exam Vital Signs Date Time Temp Pulse Resp B/P (MAP) Pulse Ox O2 Delivery O2 Flow Rate FiO2 02/04/18 21:06 97.6 88 15 121/78 98 Room Air 97.5 vitals normal Sp02 EP Interpretation: reviewed, normal General Appearance: well appearing, no apparent distress, alert Head: normocephalic, atraumatic Eyes: bilateral eye PERRL, bilateral eye EOMI ENT: hearing grossly normal, normal pharynx Neck: full range of motion, supple, no meningismus Respiratory: chest non-tender, lungs clear, normal breath sounds Cardiovascular #1: regular rate, rhythm, no murmur Gastrointestinal: normal bowel sounds, non tender, no mass, no organomegaly, no bruit, non-distended Musculoskeletal: back normal, gait/station normal, normal range of motion Neurologic: alert, oriented x3 Psychiatric: mood/affect normal Skin: warm/dry, rash - Right hand: There is 2-3 cm area of coalescing pimply lesion. No abscess. Some mild erythema. Medical Decision Making Diagnostic Impression: Primary Impression: Cellulitis of hand Additional Impression: Warts Qualified Codes: B07.9 - Viral wart, unspecified ER Course Patient with a lesion on her right hand. Most likely warts weren't overlying cellulitis some scratching. No evidence of abscess or necrotizing fasciitis. No evidence of ringworm. We'll discharge home. Last Vital Signs Date Time Temp Pulse Resp B/P (MAP) Pulse Ox O2 Delivery O2 Flow Rate FiO2 02/04/18 21:06 97.6 88 15 121/78 98 Room Air 97.5 Status: unchanged Disposition: HOME, SELF-CARE Condition: Stable Scripts Mupirocin* (MUPIROCIN*) 22 Gm Oint...g. 1 APPLIC TOPIC THREE TIMES A DAY, #22 GM Prov: Hector Ta MD 02/04/18 Additional Instructions: Follow-up your doctor within 7 days. You may need a referral to see a surg tech. Return if worse. Hector Ta MD Feb 04, 2018 21:35
[2018-02-04 21:45] VITALS: BP 123/75
== END 2018-02-04 22:00 | disposition home or self-care (01) ==
LOC: EMR 21:48
DX: L03.113 Cellulitis of right upper limb (principal); B07.9 Viral wart, unspecified; I10 Essential (primary) hypertension
CPT/HCPCS: 99283

== ENCOUNTER 2018-03-07 12:28 | Emergency (ER) | payer OTHER ==
[~2018-03-07] VITALS: Ht 175.3 cm; Wt 81.6 kg
[~2018-03-07 12:28] MED LIST changes: +MUPIROCIN22 GM TOPIC
[2018-03-07] MEDS ORDERED: NKM (12:42)
[2018-03-07 12:47] VITALS: BP 156/105
[2018-03-07] MEDS ORDERED: Lidocaine 2% Visc 15ml soln ORAL ONE (13:00)
[2018-03-07] MEDS ORDERED: Mylanta II UD 30ml ORAL ONE (13:00)
[2018-03-07] MEDS ORDERED: Dicyclomine HCl 10mg/5ml oral soln ORAL ONE (13:00)
[2018-03-07 13:33] LABS: APPEARANCE,URINE CLEAR; BILIRUBIN, URINE NEGATIVE (NEGATIVE); COLOR,URINE AMBER; GLUCOSE, URINE (UA) NEGATIVE (NEGATIVE); KETONES,URINE 4+ (NEGATIVE); LEUKOCYTE ESTERASE ,URINE NEGATIVE (NEGATIVE); NITRITE,URINE NEGATIVE (NEGATIVE); PH,URINE 6.5 (4.5-8.0); PROTEIN,URINE 2+ (NEGATIVE); UROBILINOGEN,URINE 1 MG/DL (0.0-1.0)
[2018-03-07 13:39] LABS: HEMATOCRIT 41.4 % (37.0-47.0); HEMOGLOBIN 14.2 G/DL (12.0-16.0); MEAN CORPUSCULAR VOLUME 98 FL (80-99); PLATELET COUNT 318 K/UL (150-450); RED BLOOD COUNT 4.22 M/UL (4.20-5.40); RED CELL DISTRIBUTION WIDTH 10.6 % (11.6-14.8); WHITE BLOOD COUNT 14.7 K/UL (4.8-10.8)
[2018-03-07] MEDS ORDERED: Morphine Sulfate 2mg/ml Inj IVP ONE ×2 (13:45→15:00)
[2018-03-07 13:49] LABS: ANION GAP 13 mmol/L (5-15); BLOOD UREA NITROGEN 16 mg/dL (7-18); CALCIUM 8.9 MG/DL (8.5-10.1); CARBON DIOXIDE 20 MMOL/L (21-32); CHLORIDE 105 MMOL/L (98-107); CREATININE 0.7 MG/DL (0.55-1.30); POTASSIUM 4.1 MMOL/L (3.5-5.1); SODIUM 138 MMOL/L (136-145)
[2018-03-07 13:55] LABS: ALANINE AMINOTRANSFERASE 30 U/L (12-78); ALBUMIN/GLOBULIN RATIO 0.9 (1.0-2.7); ALKALINE PHOSPHATASE 74 U/L (46-116); ASPARTATE AMINO TRANSFERASE 37 U/L (15-37); BILIRUBIN,TOTAL 0.7 MG/DL (0.2-1.0)
[2018-03-07] MEDS ORDERED: Isovue-300 100ml vial INJ PRN (14:00)
--- NOTE | 2018-03-07 14:58 | Diagnostic Imaging Report ---
Indication: Abdominal pain Technique: Continuous helical transaxial imaging of the abdomen and pelvis was obtained from the lung bases to the pubic symphysis during intravenous contrast administration. Coronal 2-D reformats were also obtained. Study obtained in a Siemens sensation [address] Automatic Exposure Control was utilized. Total Dose length Product (DLP): 674.[address] Dose Index Volume (CTDIvol): 12.1 mGy Comparison: None Findings: There is prominence of the wall of the colon demonstrated. Unfortunately, the colon is also underdistended. Please correlate clinically for colitis. There is no pneumatosis or inflammation. No free fluid identified. No free air identified. There is no evidence of bowel obstruction. The kidneys, liver and spleen appear normal. There is periportal edema which is nonspecific. Pancreas and gallbladder are unremarkable. No biliary ductal dilatation is identified. The lung bases are clear IMPRESSION: Under distention of the colon. The possibility of mild colitis is not excluded. Please Correlate clinically. Periportal edema nonspecific, unchanged. The CT scanner at [facility] is accredited by the [employer] and the scans are performed using dose optimization techniques as appropriate to a performed exam including Automatic Exposure control.
[2018-03-07] MEDS ORDERED: Capsaicin 0.075% Cream TOPIC SCH (15:15)
[2018-03-07 15:46] VITALS: BP 113/65
[2018-03-07] MEDS ORDERED: METRONIDAZOLE500 MG ORAL (15:50)
[2018-03-07] MEDS ORDERED: CIPROFLOXACIN500 M2 ORAL (15:50)
[2018-03-07] MEDS ORDERED: TRAMADOL HCL50 MG ORAL (15:50)
[2018-03-07] MEDS ORDERED: ZOFRAN4 M3 ORAL (15:50)
--- NOTE | 2018-03-07 15:51 | Emergency Room Report ---
History of Present Illness General Chief Complaint: Abdominal Pain Source: Patient Present Illness HPI 32-year-old female patient presents ER complaining of abdominal pain, vomiting, diarrhea. Patient has previously been seen in this ER for similar symptoms in the past. Patient reports symptoms began this morning at 4 AM, states that she was drinking alcohol last night. Also reports smoking marijuana. Also complains of back pain during this time, states back pain is been present for " a while". Denies bowel or bladder incontinence. Denies pain radiating down legs. denies recent injury or trauma. Reports able to ambulate without difficulty. Denies hematemesis. Denies recent travel outside the country. Denies blood in stool. Denies fever, chest pain, shortness of breath. Denies . Denies dysuria, hematuria, vaginal discharge. Allergies: Coded Allergies: No Known Allergies (Unverified , 02/04/18) Patient History Past Medical History: see triage record Now: No Reviewed Nursing Documentation: PMH: Agreed; PSxH: Agreed Nursing Documentation-PMH Past Medical History: No History, Except For Hx Hypertension: Yes Hx Seizures: Yes Review of Systems All Other Systems: negative except mentioned in HPI Physical Exam Vital Signs Date Time Temp Pulse Resp B/P (MAP) Pulse Ox O2 Delivery O2 Flow Rate FiO2 03/07/18 12:36 97.9 56 20 156/105 97 Room Air Sp02 EP Interpretation: reviewed, normal General Appearance: well appearing, no apparent distress, alert, GCS 15, non- toxic Head: normocephalic, atraumatic Eyes: bilateral eye normal inspection, bilateral eye PERRL ENT: hearing grossly normal, normal pharynx, no angioedema, normal voice, uvula midline, moist mucus membranes Neck: full range of motion Respiratory: lungs clear, normal breath sounds, no rhonchi, no respiratory distress, no accessory muscle use, no wheezing, speaking full sentences Cardiovascular #1: regular rate, rhythm, no edema Gastrointestinal: soft, no mass, non-distended, no guarding, no rebound, tenderness Genitourinary: no CVA tenderness Musculoskeletal: back normal, digits/nails normal, gait/station normal, normal range of motion, non-tender Neurologic: alert, oriented x3, responsive, motor strength/tone normal, SLR negative, sensory intact, cerebellar normal, normal gait, speech normal Psychiatric: mood/affect normal Skin: no rash Medical Decision Making PA Attestation Dr. Wray is my supervising Physician whom patient management has been discussed with. Diagnostic Impression: Primary Impression: Abdominal pain Additional Impressions: Vomiting and diarrhea Marijuana use Colitis ER Course Pt. presents to the ED c/o abdominal pain and vomiting. Ddx considered but are not limited to UTI, cholelithiasis, cholecystitis, pancreatitis, appendicitis, diverticulitis, constipation, drug use, colitis, cyclical vomiting syndrome, gastritis, GERD, PUD. Begin abdominal pain workup. Provided patient with pain medication. Vital signs: are WNL, pt. is afebrile, blood pressure mildly elevated. Blood pressure mildly elevated at this time, will continue to monitor. Denies chest pain, shortness of breath, vision changes, does not require acute intervention at ER at this time. Follow with primary care provider discuss further treatment and referral. Advised on low-sodium diet, advised on diet and exercise. ORDERS: CBC, CMP, Lipase, UA, CT abdomen pelvis, Zofran, GI cocktail, IV fluids and medication. ER COURSE: CBC elevated WBC with left shift CMP unremarkable, no elevation of LFTs Lipase not elevated UA unremarkable Urine negative UDS positive for THC and benzos, patient states that she takes benzos given to her by her mother who takes them to "help her sleep". Informed patient not to take medications that are not prescribed to her. Advised patient to not take benzos while drinking due to reactions and next. Avoid marijuana use, maybe because of vomiting symptoms. Discuss results with patient patient still complaining of pain symptoms, provided with pain medication and capsaicin cream. CURES reviewed. CT abdomen and pelvis with contrast positive for colitis. Discuss results with the patient. Provided patient with copy of results. Instructed patient to followup with PCP and discuss results of report with patient, discuss need for further treatment and referral. Patient able tolerate by mouth fluids currently in ER. Patient reports pain symptoms improved. likely colitis causing pain symptoms, due to elevated white blood cell count with left shift and colitis on CT, will provide patient with antibiotics at discharged home to cover for infection. Patient reports relief of pain symptoms with medication. Discuss patient care with Dr. Wray, agrees with assessment and treatment plan. Instructed patient not to drink alcohol in excess and not to smoke marijuana. followup with GI specialist for further testing and treatment, contact information provided for GI specialist. Patient states will contact PCP for referral to GI specialist. patient had a stable vitals prior to discharge home. OK for close outpatient followup. DISCHARGE: Rx provided for Cipro x5 Rx provided for Flagyl x7 days, do not drink alcohol taking Flagyl due to side effect reaction. Rx provided for Zofran Rx for Ultram, CURES reviewed At this time pt. is stable for d/c to home. Patient resting comfortably, in no acute distress, nontoxic appearing, talking without difficulty. Rx provided to patient. Patient to take medications as instructed Will provide with patient care instructions and any necessary prescriptions. Care plan and follow-up instructions provided. Patient instructed to follow-up with primary care provider in 3 - 5 days. Patient questions asked and answered. Patient reports understanding and agreement to treatment plan. ER precautions given. Patient instructed to return to ER immediately for any new or worsening of symptoms including but not limited to increasing SOB, persistent fever, worsening of pain symptoms, intractable vomiting, blood in stool, urine, and/or emesis. - Please note that this Emergency Department Report was dictated using Lumus[employer] technical officer technology software, occasionally this can lead to erroneous entry secondary to interpretation by the dictation equipment. Labs Test 03/07/18 13:10 03/07/18 13:21 Urine Color Ch[place] Urine Appearance Clear Urine pH 6.5 (4.5-8.0) Urine Specific Russell 1.020 (1.005-1.035) Urine Protein 2+ (NEGATIVE) Urine Glucose (UA) Negative (NEGATIVE) Urine Ketones 4+ (NEGATIVE) Urine Blood 4+ (NEGATIVE) Urine Nitrite Negative (NEGATIVE) Urine Bilirubin Negative (NEGATIVE) Urine Ictotest Negaive (NEGATIVE) Urine Urobilinogen 1 MG/DL (0.0-1.0) Urine Leukocyte Esterase Negative (NEGATIVE) Urine RBC 5-10 /HPF (0 - 2) Urine WBC 0-2 /HPF (0 - 2) Urine Squamous Epithelial Cells Few /LPF (NONE/OCC) Urine Bacteria Few /HPF (NONE) Urine Mucus Few /LPF (NONE/OCC) Urine HCG, Qualitative Negative (NEGATIVE) Urine Opiates Screen Negative (NEGATIVE) Urine Barbiturates Screen Negative (NEGATIVE) Phencyclidine (PCP) Screen Negative (NEGATIVE) Urine Amphetamines Screen Negative (NEGATIVE) Urine Benzodiazepines Screen Positive (NEGATIVE) Urine Cocaine Screen Negative (NEGATIVE) Urine Marijuana (THC) Screen Positive (NEGATIVE) White Blood Count 14.7 K/UL (4.8-10.8) Red Blood Count 4.22 M/UL (4.20-5.40) Hemoglobin 14.2 G/DL (12.0-16.0) Hematocrit 41.4 % (37.0-47.0) Mean Corpuscular Volume 98 FL (80-99) Mean Corpuscular Hemoglobin 33.6 PG (27.0-31.0) Mean Corpuscular Hemoglobin Concent 34.2 G/DL (32.0-36.0) Red Cell Distribution Width 10.6 % (11.6-14.8) Platelet Count 318 K/UL (150-450) Mean Platelet Volume 6.7 FL (6.5-10.1) Neutrophils (%) (Auto) % (45.0-75.0) Lymphocytes (%) (Auto) % (20.0-45.0) Monocytes (%) (Auto) % (1.0-10.0) Eosinophils (%) (Auto) % (0.0-3.0) Basophils (%) (Auto) % (0.0-2.0) Differential Total Cells Counted 100 Neutrophils % (Manual) 90 % (45-75) Lymphocytes % (Manual) 8 % (20-45) Monocytes % (Manual) 2 % (1-10) Eosinophils % (Manual) 0 % (0-3) Basophils % (Manual) 0 % (0-2) Band Neutrophils 0 % (0-8) Platelet Estimate Adequate Platelet Morphology Normal Red Blood Cell Morphology Normal Sodium Level 138 MMOL/L (136-145) Potassium Level 4.1 MMOL/L (3.5-5.1) Chloride Level 105 MMOL/L (98-107) Carbon Dioxide Level 20 MMOL/L (21-32) Anion Gap 13 mmol/L (5-15) Blood Urea Nitrogen 16 mg/dL (7-18) Creatinine 0.7 MG/DL (0.55-1.30) Estimat Glomerular Filtration Rate > 60 mL/min (>60) Glucose Level 117 MG/DL (74-106) Calcium Level 8.9 MG/DL (8.5-10.1) Total Bilirubin 0.7 MG/DL (0.2-1.0) Aspartate Amino Transf (AST/SGOT) 37 U/L (15-37) Alanine Aminotransferase (ALT/SGPT) 30 U/L (12-78) Alkaline Phosphatase 74 U/L (46-116) Total Protein 8.5 G/DL (6.4-8.2) Albumin 4.0 G/DL (3.4-5.0) Globulin 4.5 g/dL Albumin/Globulin Ratio 0.9 (1.0-2.7) Lipase 68 U/L (73-393) Serum Alcohol < 3 mg/dL CT/MRI/US Diagnostic Results CT/MRI/US Diagnostic Results : Imaging Test Ordered: CT abdomen and pelvis with contrast Impression under distention of the colon. The possibility of mild colitis is not excluded. Correlate clinically. Periportal edema noted, unchanged. Last Vital Signs Date Time Temp Pulse Resp B/P (MAP) Pulse Ox O2 Delivery O2 Flow Rate FiO2 03/07/18 13:13 56 20 Room Air 03/07/18 12:47 97.9 156/105 97 Status: improved Disposition: HOME, SELF-CARE Condition: Stable Scripts Metronidazole* (FLAGYL*) 500 Mg Tablet 500 MG ORAL THREE TIMES A DAY, #21 TAB 0 Refills Prov: Ricco Escobar P.A. 03/07/18 Ondansetron* (ZOFRAN*) 4 Mg Tablet 4 MG ORAL Q6H PRN for Nausea & Vomiting, #10 TAB Prov: Ricco Escobar.A. 03/07/18 Tramadol Hcl* (ULTRAM*) 50 Mg Tablet 50 MG ORAL Q6H PRN for For Pain, #10 TAB 0 Refills Prov: Ricco Escobar.A. 03/07/18 Ciprofloxacin Hcl* (CIPROFLOXACIN HCL*) 500 Mg Tablet 500 MG ORAL EVERY 12 HOURS for 5 Days, #10 TAB 0 Refills Prov: Ricco Escobar P.A. 03/07/18 Referrals: [facility],REFERRING (PCP) Patient Instructions: Abdominal Pain, Adult, Alcohol Use Disorder, Cannabis Use Disorder, Diarrhea, Adult, [id number], Nausea and Vomiting, Adult, Easy-to -Read Additional Instructions: Followup with primary care provider in 3 -5 days. Avoid spicy foods, avoid dairy foods. Clear liquid diet. BRAT diet: bananas, rice, apple sauce, toast. do not drink alcohol in excess. Does not drink alcohol taking Flagyl. Do not take medications that are not prescribed to you. follow-up with GI specialist. Avoid marijuana use. Take medications as directed. Patient questions asked and answered. ER precautions given, patient instructed to return to ER immediately for any new or worsening of symptoms. Ricco Escobar Mar 07, 2018 15:51
[2018-03-07 16:04] VITALS: BP 113/65
== END 2018-03-07 16:04 | disposition home or self-care (01) ==
LOC: EMR 12:57
DX: K52.9 Noninfective gastroenteritis and colitis, unspecified (principal); F12.90 Cannabis use, unspecified, uncomplicated; I10 Essential (primary) hypertension; Z86.69 Personal history of other diseases of the nervous system and sense organs
CPT/HCPCS: 36415; 74177; 80053; 80307; 80329; 81003; 81025; 83690; 85007; 85025; 96361; 96374; 96375; 96376; 99284; J2270; J2405; Q9967

== ENCOUNTER 2018-04-06 21:11 | Emergency (ER) | payer OTHER ==
[~2018-04-06] VITALS: Ht 175.3 cm; Wt 75.7 kg
[~2018-04-06 21:11] MED LIST changes: +CIPROFLOXACIN500 M2 ORAL; +METRONIDAZOLE500 MG ORAL; +NKM; +ZOFRAN4 M3 ORAL
[2018-04-06 21:25] VITALS: BP 130/79
[2018-04-06 22:10] VITALS: BP 128/86
[2018-04-06] MEDS ORDERED: HYDROCORTISONE30 G2 TP (22:10)
--- NOTE | 2018-04-07 00:53 | Emergency Room Report ---
History of Present Illness General Chief Complaint: Skin Rash/Abscess Source: Patient Present Illness HPI Patient present with complaints of rash to the right dorsal hand Reports that this has been ongoing now for several months Reports puritic complaints Denies any fevers or chills Reports that she is a yoo Reports attempting steroid medication along with fungal medication Does not appear to be improving the area Denies any other contact with other foreign objects Allergies: Coded Allergies: No Known Allergies (Unverified , 02/04/18) Patient History Past Medical History: see triage record Pertinent Family History: none Now: No Reviewed Nursing Documentation: PMH: Agreed; PSxH: Agreed Nursing Documentation-PM Past Medical History: No Stated History Hx Hypertension: Yes Hx Seizures: Yes Review of Systems All Other Systems: negative except mentioned in HPI Physical Exam Vital Signs Date Time Temp Pulse Resp B/P (MAP) Pulse Ox O2 Delivery O2 Flow Rate FiO2 04/06/18 21:16 97.9 136/89 04/06/18 21:25 83 18 99 Room Air Sp02 EP Interpretation: reviewed, normal General Appearance: well appearing, no apparent distress Head: normocephalic, atraumatic Eyes: bilateral eye PERRL, bilateral eye EOMI ENT: normal pharynx Neck: full range of motion, supple Respiratory: lungs clear Musculoskeletal: normal inspection Neurologic: alert, oriented x3 Skin: other - Sickler patchy area on the right web of the dorsal hand between the index and thumb approximately 3 x 3 cm, appears to be consistent with dermatitis and eczema, no obvious blister formation, no dermatomal spread Lymphatic: no adenopathy Medical Decision Making Diagnostic Impression: Primary Impression: dermatitis ER Course Patient's signs are consistent with what appears to be likely eczema however given the duration of symptoms and the patient's presentation She was recommended to follow-up with primary physician for further dermatology referral as repeat intervention at emergency room has not fully resolved her discomfort Last Vital Signs Date Time Temp Pulse Resp B/P (MAP) Pulse Ox O2 Delivery O2 Flow Rate FiO2 04/06/18 22:10 97.8 79 18 128/86 99 Room Air Status: improved Disposition: HOME, SELF-CARE Condition: Stable Scripts Hydrocortisone (Hydrocortisone Cream 2.5%) Y Cream.appl 1 APPLIC TP BID for 7 Days, GM Prov: Brittani Taveras DO 04/06/18 Referrals: [facility],REFERRING (PCP) Patient Instructions: Hand Dermatitis, [id number] Additional Instructions: Patient is provided with the discharge instructions notified to follow up with primary doctor in the next 2-3 days otherwise return to the er with any worsening symptoms. Given that you have required multiple visits to the emergency room dermatology follow-up is also highly recommended, Please note that this report is being documented using DRAG[employer] technology. This can lead to erroneous entry secondary to incorrect interpretation by the dictating instrument. Brittani Taveras DO Apr 07, 2018 00:53
== END 2018-04-06 23:38 | disposition home or self-care (01) ==
LOC: EMR 22:16
DX: L30.9 Dermatitis, unspecified (principal); I10 Essential (primary) hypertension
CPT/HCPCS: 99282

== ENCOUNTER 2018-06-14 12:00 | Emergency (ER) | payer OTHER ==
[~2018-06-14] VITALS: Ht 175.3 cm; Wt 75.7 kg
[~2018-06-14 12:00] MED LIST changes: +HYDROCORTISONE30 G2 TP
--- NOTE | 2018-06-14 12:56 | NUR ---
ED Nurse Note: Pt states that she had a dresser fall on her rt had . Pt is AAox4 respirations are even and unlabored.
[2018-06-14 13:04] VITALS: BP 139/82
--- NOTE | 2018-06-14 14:19 | Diagnostic Imaging Report ---
Indication: Pain, trauma 2 weeks ago Technique: 3 views right hand Comparison: none Findings: There is an overriding anterior angulated fracture of the distal neck of the fifth metacarpal. There is overlying soft tissue swelling. No other acute fractures. No dislocations. Joint spaces are preserved Impression: Positive for fifth metacarpal fracture
--- NOTE | 2018-06-14 16:56 | Emergency Room Report ---
History of Present Illness General Chief Complaint: Upper Extremity Injury Source: Patient, Medical Record Present Illness HPI Patient complains of right hand pain. Patient states that this dresser fell on her hand. She's got pain in the fifth metacarpal. With some evidence deformity. This occurred about week ago. She denies any numbness tingling or other injuries are noted. Symptoms noted to be moderate to severe. 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 No other associated signs and symptoms. No other complaints were noted. Allergies: Coded Allergies: No Known Allergies (Unverified , 02/04/18) Patient History Past Medical History: none Past Surgical History: none Pertinent Family History: none Social History: Denies: smoking, alcohol use, drug use Last Menstrual Period: 05/14/18 Reviewed Nursing Documentation: PMH: Agreed; PSxH: Agreed Nursing Documentation-PMH Past Medical History: No History, Except For Hx Hypertension: Yes Hx Seizures: Yes Review of Systems All Other Systems: negative except mentioned in HPI Physical Exam Vital Signs Date Time Temp Pulse Resp B/P (MAP) Pulse Ox O2 Delivery O2 Flow Rate FiO2 06/14/18 12:04 97.9 72 18 139/82 98 Room Air Sp02 EP Interpretation: reviewed, normal General Appearance: normal inspection, well appearing, no apparent distress, alert Head: atraumatic Eyes: bilateral eye normal inspection ENT: normal ENT inspection, hearing grossly normal, normal voice Neck: normal inspection, full range of motion, supple, no bony tend Respiratory: normal inspection, lungs clear, normal breath sounds, no respiratory distress, no retraction, no wheezing Cardiovascular #1: regular rate, rhythm, no edema Gastrointestinal: normal inspection, normal bowel sounds, non tender, soft, no guarding, no hernia Genitourinary: no CVA tenderness Musculoskeletal: back normal, tender - Right hand fifth metacarpal Neurologic: normal inspection, alert, responsive, speech normal Psychiatric: normal inspection, judgement/insight normal, mood/affect normal Skin: normal inspection, normal color, no rash Medical Decision Making Diagnostic Impression: Primary Impression: Boxer's fracture Additional Impression: Injury of right upper extremity ER Course Patient presents emergency department today complaint trauma to left hand. Different considerations cofactors dislocation versus strain. Given patient's presentation I felt that x-rays are indicated rule out fracture. X-rays show evidence of boxer's fracture. Patient was offered a splint but she declined. Symptoms have been going on for a week and she states that she cannot tolerate a splint. She will follow-up outpatient with orthopedics or hand surgery.Patient is advised to follow up with primary doctor in 2-3 days and return the emergency room for any worsening symptoms and as needed. Other X-Ray Diagnostic Results Other X-Ray Diagnostic Results : X-Ray ordered: Righthand x-ray positive boxer's fracture # of Views/Limited Vs Complete: 3 View Indication: Pain EP Interpretation: No Last Vital Signs Date Time Temp Pulse Resp B/P (MAP) Pulse Ox O2 Delivery O2 Flow Rate FiO2 06/14/18 13:04 97.9 75 18 139/82 98 Room Air Status: unchanged Disposition: HOME, SELF-CARE Condition: Stable Referrals: [facility],REFERRING Patient Instructions: Boxer's Fracture Amador Kwon MD Jun 14, 2018 16:56
== END 2018-06-14 13:06 | disposition home or self-care (01) ==
LOC: EMR 13:00
DX: S62.337A Displaced fracture of neck of fifth metacarpal bone, left hand, initial encounter for closed fracture (principal); W20.8XXA Other cause of strike by thrown, projected or falling object, initial encounter; Y92.9 Unspecified place or not applicable; I10 Essential (primary) hypertension
CPT/HCPCS: 99283